=== PATIENT | female | born 2000 | race Two or more races ===

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

== ENCOUNTER 2021-11-14 11:30 | Outpatient (CLI) | payer OTHER ==
[~2021-11-14 11:30] MED LIST: PREVACID15 M1 PO; TUSICOF CAPLET1 EACH PO; ZANTAC150 M3 PO
== END 2021-11-14 12:00 | disposition home or self-care (01) ==
LOC: PPH VACUNA 11:30
PROVIDERS: ATTEND Emergency Medicine Pediatric Emergency Medicine
DX: Z23 Encounter for immunization (principal)